=== PATIENT | male | born 1960 | race Caucasian/White ===

== ENCOUNTER 2022-08-11 08:17 | Outpatient (CLI) | payer MEDICARE, SELFPAY ==
--- NOTE | ~2022-08-11 | MR_ITS ---
EXAMINATION: MR cervical spine wo con DATE: 08/11/2022 09:25 INDICATION: Neck pain. TECHNIQUE: Magnetic resonance imaging (MRI) of the cervical spine was performed without intravenous c ontrast. Sequences included sagittal T2-weighted FSE, sagittal T2-weighted FS FSE, sagittal T1-weight ed FSE, axial MERGE, and axial T2-weighted FSE. COMPARISON: None FINDINGS: There is kyphosis of cervical spine. Vertebral body heights and intervertebral disc heights are normal. Osseous central spinal canal is developmentally small in cervical spine. The spinal cord signal intensity is normal. The following disc levels are specifically discussed: C2-C3: The disc does not extend beyond the endplate margin. There is mild left uncovertebral joint os teoarthritis. There is mild bilateral facet joint osteoarthritis. There is mild left neural foraminal stenosis. There is mild central canal stenosis. C3-C4: The disc does not extend beyond the endplate margin. There is mild right uncovertebral joint o steoarthritis. There is mild right and moderate left facet joint osteoarthritis. There is mild bilate ral neural foraminal stenosis. There is mild central canal stenosis. C4-C5: The disc does not extend beyond the endplate margin. There is mild bilateral uncovertebral lela nt osteoarthritis. There is mild bilateral facet joint osteoarthritis. There is mild bilateral neural foraminal stenosis. There is mild central canal stenosis. C5-C6: The disc is bulging. There is mild bilateral uncovertebral joint osteoarthritis. There is mode rate bilateral facet joint osteoarthritis. There is mild bilateral neural foraminal stenosis. There i s mild central canal stenosis. C6-C7: The disc does not extend beyond the endplate margin. There is mild bilateral uncovertebral lela nt osteoarthritis. There is mild bilateral facet joint osteoarthritis. There is mild bilateral neural foraminal stenosis. There is no central canal stenosis. C7-T1: The disc does not extend beyond the endplate margin. There is no uncovertebral joint osteoarth ritis. There is mild right facet joint osteoarthritis. There is no neural foraminal stenosis. There i s no central canal stenosis. IMPRESSION: 1. Mild cervical spondylosis. Reviewed, dictated and finalized at location A. [employer]
== END 2022-08-11 08:18 ==
PROVIDERS: PCP Family Medicine; Visit Provider Orthopaedic Surgery Hand Surgery
DX: M25.511 Pain in right shoulder (principal); M43.02 Spondylolysis, cervical region
CPT/HCPCS: 72141

== ENCOUNTER 2022-08-16 14:18 | Outpatient (CLI) | payer MEDICARE, MEDICAID, SELFPAY ==
--- NOTE | ~2022-08-16 | US_ITS ---
US art doppler w press LE BI INDICATION: Peripheral vascular disease TECHNIQUE: Segmental pressures and plethysmographic and Doppler waveforms of the brachial and lower e xtremity arteries were obtained. COMPARISON: None. FINDINGS: Right and left brachial artery pressures of 171 mm Hg and 184 mm Hg, respectively, are concordant (no rmal difference <= 30 mmHg). The right ankle-brachial index (WADE) is 0.82 (normal >= 0.9-1.0). The right great toe-brachial index (TBI) is 0.3 (normal >= 0.60). The left WADE could not be obtained. The left TBI is 0.27. IMPRESSION: 1. Significantly decreased bilateral toe brachial indices consistent with severe peripheral arterial disease. 2: Mildly decreased right ankle-brachial index. Left ankle brachial index could not be obtained. Reviewed, dictated and finalized at location A. [facility] IMPRESSION: 1. Significantly decreased bilateral toe brachial indices consistent with sever e peripheral arterial disease. 2: Mildly decreased right ankle-brachial index. Left ankle brachial index could not be obtained.
== END 2022-08-16 14:19 | disposition home or self-care (01) ==
PROVIDERS: PCP Family Medicine; Visit Provider Podiatrist Foot & Ankle Surgery
DX: I73.9 Peripheral vascular disease, unspecified (principal)
CPT/HCPCS: 93923

== ENCOUNTER 2022-12-05 11:39 | Observation (INO) | payer MEDICARE, MEDICAID, SELFPAY ==
[2022-12-05] VITALS (20 sets, daily range): BP systolic 136–175; BP diastolic 48–65; PULSE 81–95; RESP 14–24; TEMP 36.9–37.7; O2SAT 94–98; BMI 35.7; BMI 35.6
--- NOTE | ~2022-12-05 | US_ITS ---
EXAMINATION: US arterial duplex LE DATE: 12/06/2022 17:43 INDICATION: Left lower limb pain and decreased pulses TECHNIQUE: Multiple grayscale and Doppler ultrasound images of the left lower limb were obtained. COMPARISON: None FINDINGS: Triphasic waveforms with brisk systolic upstrokes at the left common femoral, superficial femoral, pr ofunda femoral and proximal popliteal arteries. Biphasic waveforms with brisk systolic upstrokes at t he more left distal popliteal artery, proximal to mid posterior tibial, anterior tibial and proximal dorsalis pedis artery. There appears to be a segmental occlusion versus high-grade stenosis at the di stal left posterior tibial artery with no discernible vascular flow on color Doppler and with very sl ow aphasic waveform on M-mode Doppler which appears primarily retrograde and more likely associated w ith flow in the associated vein. Similarly there appears be occlusion of the distal left dorsalis ped is artery with no discernible vascular flow on color or M-mode Doppler. IMPRESSION: 1. Occlusion versus high-grade stenoses at the distal left posterior tibial and dorsalis pedis arteri es with relatively abrupt transition from normal arterial waveforms with brisk systolic upstrokes in the more proximal arteries. Could consider further evaluation with angiography, either conventional o r with CT as clinically indicated. Reviewed, dictated and finalized at location A. IMPRESSION: 1. Occlusion versus high-grade stenoses at the distal left posterior tibial and dorsalis pedis arteries with relatively abrupt transition from normal arterial waveforms with brisk systolic upstrokes in the more proximal arteries. Could c onsider further evaluation with angiography, either conventional or with CT as clinically indicated.
--- NOTE | ~2022-12-05 | XR_ITS ---
XR lumbar spine 2-3V DATE: 12/05/2022 12:45 INDICATION: Fall. Low back pain. TECHNIQUE: AP, lateral, coned lateral lumbosacral views COMPARISON: None FINDINGS: There is mild thoracolumbar levoscoliosis. No fracture or bone destruction or spondylolisthesis. There is mild to moderate degenerative disc dis ease of the lumbar spine. The sacroiliac joints are intact. IMPRESSION: Mild levoscoliosis Moderate degenerative disc disease No lumbar fracture is evident Reviewed, dictated and finalized at location B.
--- NOTE | ~2022-12-05 | XR_ITS ---
XR chest 1V DATE: 12/05/2022 12:45 INDICATION: Confusion TECHNIQUE: AP chest COMPARISON: None FINDINGS: Heart size is likely enlarged although not optimally evaluated on AP projection because of magnification. No pulmonary vascular congestion or pleural effusion. No pulmonary infiltrate or consolidation. No pn eumothorax. Degenerative spurring of the thoracic spine. IMPRESSION: No active pulmonary disease Reviewed, dictated and finalized at location B. IMPRESSION: No active pulmonary disease
--- NOTE | ~2022-12-05 | US_ITS ---
US venous doppler [facility] DATE: 12/06/2022 17:42 INDICATION: Left leg pain TECHNIQUE: Real-time and color flow imaging and Doppler analysis of the veins of the left lower extre mity COMPARISON: None FINDINGS: The left greater saphenous vein is patent. There is spontaneous and phasic flow and normal augmentation and color signal and normal compression of the deep veins of the left lower extremity. IMPRESSION: No evidence of deep venous thrombosis of left lower extremity Reviewed, dictated and finalized at Location A. Reviewed, dictated and finalized at location A.
--- NOTE | ~2022-12-05 | CT_ITS ---
EXAMINATION: CT hip LT wo con DATE: 12/05/2022 14:15 INDICATION: Worsening left hip pain TECHNIQUE: High resolution computed tomography (CT) of the left hip was performed without intravenous contrast. Additional sagittal and coronal reconstructions were performed. Automated exposure control and iterative reconstruction technique were employed. The dose-length product was 700.44 mGy-cm. COMPARISON: Radiograph dated 12/05/2022 FINDINGS: Alignment is normal. No fracture or suspected avascular necrosis. Mild osteoarthritis at the left hip with mild nonuniform joint space narrowing, subarticular cystlike changes along the superolateral ri m of the left acetabulum and small marginal osteophytes about both the acetabulum and femoral head. A dditional mild polyarticular osteoarthritis at the bilateral sacroiliac and lower lumbar facet joints . No left hip joint effusion. Mild diverticulosis along the sigmoid colon without adjacent inflammato ry stranding to suggest diverticulitis. Bladder and prostate are unremarkable. Calcifications along t he penile fascia consistent with pleural-based disease. There are also scattered vascular calcificati ons in the pelvis and proximal left thigh including the bilateral seminal vesicles which is suggestiv e of diabetes. IMPRESSION: 1. Mild left hip osteoarthritis. No acute osseous abnormality. Reviewed, dictated and finalized at location A.
--- NOTE | ~2022-12-05 | CT_ITS ---
CT head without contrast Indication: Altered mental status Technique: Serial scans were obtained through the brain without the administration of contrast. Dose reduction technique was used on this scan by utilizing automated exposure control and iterative recon struction technique. The dose-length product (DLP) was 605.33 mGy-cm. Findings: There is no evidence of intracranial hemorrhage, mass lesion, or acute infarct. The ventri cles and subarachnoid spaces are dilated, consistent with mild atrophy. Low attenuation regions are seen within the periventricular white matter bilaterally, likely representing changes from chronic mi crovascular ischemic disease. There is no evidence of edema, mass effect or midline shift. The visu alized paranasal sinuses and mastoid air cells are clear. Impression: No intracranial hemorrhage, mass, or acute infarct. Atrophy and chronic white matter changes, as above. Reviewed, dictated and finalized at location . Impression: No intracranial hemorrhage, mass, or acute infarct. Atrophy and chronic white matter changes, as above.
--- NOTE | ~2022-12-05 | XR_ITS ---
XR hip LT 2V w AP pelvis DATE: 12/05/2022 12:45 INDICATION: Fall. Left hip pain. TECHNIQUE: AP pelvis. AP and lateral views of left hip. COMPARISON: None FINDINGS: Intramedullary karri of right femur. The pubic symphysis and sacroiliac joints are intact. No pelvic fracture or bone destruction is evide nt. Mild left hip osteoarthritis. No fracture or dislocation, avascular necrosis or bone destruction of t he left hip is detected. Incidentally noted are vas deferens calcifications, usually associated with diabetes. IMPRESSION: No pelvic or left hip fracture Intramedullary karri of right femur Vas deferens calcifications, suggesting diabetes Reviewed, dictated and finalized at location B.
--- NOTE | ~2022-12-05 | US_ITS ---
US renal BI DATE: 12/06/2022 17:42 INDICATION: Renal failure TECHNIQUE: Real-time imaging of the kidneys and urinary bladder COMPARISON: None FINDINGS: The right kidney measures 10.2 cm length, the left kidney 10.5 cm length. Renal parenchyma appears abnormally hyperechoic, suggesting chronic renal disease. No renal mass lesi on or hydronephrosis. The urinary bladder is unremarkable. IMPRESSION: Increased parenchymal echogenicity of the kidneys suggesting chronic renal disease No evidence of obstructive uropathy Reviewed, dictated and finalized at Location A. Reviewed, dictated and finalized at location A. IMPRESSION: Increased parenchymal echogenicity of the kidneys suggesting chroni c renal disease No evidence of obstructive uropathy
--- NOTE | 2022-12-05 12:11 | ECG_ITS ---
Measurements Intervals [place] Rate: 90 P: 52 CO: 179 QRS: 7 QRSD: 90 T: 72 QT: 304 QTc: 373 Interpretive Statements SINUS RHYTHM INCOMPLETE RIGHT BUNDLE BRANCH BLOCK CONSIDER INFERIOR INFARCT, AGE INDETERMINATE BORDERLINE ST-T WAVE ABNORMALITY- HIGH LATERAL LEADS BASELINE ARTIFACT- I, II, III, AVR, AVL, AVF, V1, V6 ABNORMAL ECG NO PREVIOUS ECG AVAILABLE FOR COMPARISON Electronically Signed On 12-05-2022 14:36:55 CDT by Ankush Razo D.O.
--- NOTE | 2022-12-05 12:51 | ED.GENADULT ---
HPI - General Adult General Chief complaint: Extremity Injury, Lower Stated complaint: fall with left hip pain on 11/20 Time Seen by Provider: 12/05/22 11:56 Source: patient, family and RN notes reviewed Mode of arrival: wheelchair History of Present Illness HPI narrative: This is a 62 year old male with history of DM, hypertension, chronic kidney disease, PAD, blindness who presents for evaluation of left hip pain. He states that he fell November 20. His family states that his left leg accidentally fell in between the seats jarring his left hip. He states he has had progressively worsening left hip pain. His pain is worse with movement. He denies bruising or swelling. He takes percocet 10/325 once or twice a day and he last took dose at 730 this morning. His family also reports patient has been dealing with URI symptoms. She also reports some confusion that may be due to pain. Related Data Home Medications Medication Instructions Recorded Confirmed amlodipine 10 mg tablet 10 mg PO DAILY 12/16/20 aspirin 81 mg chewable tablet 81 mg PO DAILY 12/16/20 atorvastatin 40 mg tablet 40 mg PO DAILY 12/16/20 atropine 1 % eye drops 1 drp ophthalmic (eye) DAILY 12/16/20 carvedilol 6.25 mg tablet 6.25 mg PO BID 12/16/20 coenzyme Q10 150 mg capsule (Co 150 mg PO DAILY 12/16/20 Q-10) docusate sodium 100 mg capsule 100 mg PO DAILY 12/16/20 furosemide 20 mg tablet 20 mg PO QAM 12/16/20 glucagon 1 mg/mL solution for 1 mg subcut Q20M 12/16/20 injection (GlucaGen Diagnostic Kit) magnesium oxide 400 mg PO DAILY 12/16/20 prednisolone acetate 1 % eye 1 drp ophthalmic (eye) TID 12/16/20 drops,suspension timolol maleate 0.5 % once daily 1 drp EACH EYE DAILY 12/16/20 eye drops carvedilol 6.25 mg tablet mg 12/05/22 cetirizine 10 mg tablet mg 12/05/22 dapagliflozin 5 mg tablet (Farxiga) mg 12/05/22 diclofenac sodium 1 % topical gel topical 12/05/22 insulin lispro 200 unit/mL (3 mL) subcut 12/05/22 subcutaneous pen (Humalog KwikPen U-200 Insulin) Allergies Allergy/AdvReac Type Severity Reaction Status Date / Time No Known Allergies Allergy Verified 12/05/22 11:43 Review of Systems Constitutional: Constitutional: Reports weakness Eyes: Comments: chronic blindness from diabetes ENT: Reports nasal congestion Cardiovascular: Cardiovascular: Denies syncope, Denies rapid heart rate, Denies irregular heart rhythm, Denies leg edema and Denies dyspnea Respiratory: Respiratory: Denies chest congestion, Denies hemoptysis, Denies excessive phlegm production and Denies dyspnea Gastrointestinal: Gastrointestinal: Denies abdominal pain, Denies hematochezia, Denies diarrhea, Reports nausea and Denies vomiting Genitourinary: Genitourinary: Denies hematuria, Denies dysuria, Denies penile discharge and Denies testicular pain Musculoskeletal: Musculoskeletal: Reports back pain (chronic back pain), Reports arthralgias, Denies joint swelling, Denies loss of height and Denies muscle weakness Neurologic: Denies syncope, Denies focal weakness and Denies weakness PMFSH Past Medical History Medical History (Updated 12/05/22 @ 21:14 by Larissa Payton MD) 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isease Diabetic neuropathy Hypertension PAD (peripheral artery disease) Surgical History Surgical History (Updated 12/05/22 @ 14:05 by Larissa Payton MD) H/O eye surgery H/O repair of rotator cuff Social History Social History (Updated 12/05/22 @ 14:06 by Larissa Payton MD) Smoking status: Never smoker Exam Const: General: no acute distress and alert Nutritional Appearance: obese Orientation/consciousness: patient oriented x3 HENMT: Head: normal to inspection Mouth: Yes Normal oral and palatal mucosa present Throat: posterior oropharynx normal and uvula midline Neck: Neck: normal visual inspection Chest: Chest palpation & inspection: normal inspection of the chest Resp: Effort & Ins
[2022-12-05 12:59] LABS: Glucose Point of Care 86 mg/dl (65-105)
[2022-12-05 13:08] LABS: Basophils Percent Auto 0.3 % (0.2-1.2); Eosinophils Absolute Auto 0.2 K/mm3 (0-0.3); Eosinophils Percent Auto 2.3 % (0-4.4); Hematocrit 39.1 % (42.0-52.0); Hemoglobin 13.2 g/dL (14.0-18.0); Immature Granulocyte Absolute 0.03 K/mm3 (0.00-0.031); Immature Granulocyte Percent A 0.3 % (0-0.5); Lymphocytes Absolute Auto 0.79 K/mm3 (0.9-3.2); Lymphocytes Percent Auto 9.2 % (18.3-44.2); Mean Corpuscular HGB Conc 33.8 g/dl (32-36); Mean Corpuscular Volume 88.9 fl (80-100); Mean Platelet Volume 10.7 fl (7.4-10.4); Monocytes Absolute Auto 1.3 K/mm3 (0.1-0.6); Neutrophils Absolute Auto 6.3 K/mm3 (1.3-6.7); Neutrophils Percent Auto 72.9 % (45.5-73.1); Platelet Count Result 147 k/mm3 (150-375); Red Cell Distribution Width 12.4 % (11.5-14.5); White Blood Count 8.6 K/mm3 (4.5-10.0)
[2022-12-05] MEDS: ONDANSETRON INJ 4 MG/2 ML VIAL IV PUSH (13:11)
[2022-12-05] MEDS: HYDROmorphone HCL INJ (*CRX) 1 MG/ML SYR 0.5 MG IV PUSH (13:11)
[2022-12-05 13:18] LABS: Alanine Aminotransferase 35 U/L (6-50); Albumin Level 4.2 g/dL (3.5-5.1); Alkaline Phosphatase 84 U/L (38-126); Anion Gap 8 mmol/L (8-16); Aspartate Amino Transferase 33 U/L (17-59); Bilirubin,Total 0.4 mg/dL (0.2-1.3); Blood Urea Nitrogen 48 mg/dL (9-20); Calcium 8.9 mg/dL (8.4-10.2); Carbon Dioxide 25 mmol/L (22-30); Chloride 105 mmol/L (98-107); Estimated CRCL calculation 31 ml/min; Estimated Glomerular Filt Rate 26; Glucose 89 mg/dL (65-110); Potassium 4.7 mmol/L (3.4-5.0); Sodium 138 mmol/L (137-145)
[2022-12-05 13:20] LABS: Partial Thromboplastin Time 27.9 SECONDS (22.3-36.8); Prothrombin Time 12.7 Seconds (11.1-14.7)
[2022-12-05 14:10] LABS: Influenza A QL RT-PCR Negative (Negative); Influenza B QL RT-PCR Negative (Negative); SARS-CoV-2 RNA PCR Positive
[2022-12-05 14:52] LABS: Glucose Point of Care 53 mg/dl (65-105)
--- NOTE | 2022-12-05 15:00 | PC.NURSE ---
FOOD TRAY ORDERED PER DR WALKER REQUEST D/T LOW BLOOD SUGAR
[2022-12-05 15:20] LABS: Appearance Urine Clear (Clear); Bacteria Urine None Seen /hpf; Bilirubin Urine Negative (Negative); Blood Urine Negative (Negative); Color Urine Yellow (Yellow); Glucose Urine UA Negative (Negative); Hyaline Casts Urine Present /lpf; Ketones Urine Negative (Negative); Leukocyte Esterase Ur Negative LEU/UL (Negative); Need Manual Microscopic Reviewed; Nitrate Urine Negative (Negative); Non Pathogenic Casts >20; Protein Urine 3+ mg/dL (Negative); RBC Urine 0-2 /hpf (0-2); Specific Grav Ur 1.017 (1.001-1.035); Squamous Epithelial Cell Urine None seen /hpf (Few); Urobilinogen Urine 0.2 mg/dL (<2.0); WBC Urine 0-5 /hpf
[2022-12-05 15:37] LABS: Add Urine Microscopic? YES
[2022-12-05 16:18] LABS: Glucose Point of Care 95 mg/dl (65-105)
[2022-12-05 18:00] LABS: Glucose Point of Care 140 mg/dl (65-105)
--- NOTE | 2022-12-05 19:00 | PM.IMHP ---
H&P: HPI History of Present Illness Date/Time: 12/05/22 19:00 Chief Complaint: Weakness, left hip and leg pain. Narrative: This is a 62-year-old male with type 1 diabetes mellitus diagnosed at the age of 4 complicated by diabetic retinopathy which has left him legally blind, peripheral neuropathy in the upper and lower extremities, diabetic nephropathy, hypertension, peripheral arterial disease, and chronic pain syndrome who presented to the emergency department from home for evaluation of weakness and left hip and leg pain. Patient provides the following history. His Viv provides additional information, with the patient's permission. A couple of weeks ago there at the movie theater and he got his foot caught up in the chairs which caused him to fall. He has not really had any issues up until the last couple of days when he developed severe pain in the left hip radiating down the left side of the leg. He was not evaluated after that fall and did not notice any bruising or swelling of the area. He has chronic pain and takes Percocet at home which has not helped with the pain. The pain is worse with movement and better with rest. He has not been getting up as much due to the pain and the last several days he has also had a headache. encouraged him to come in today for evaluation. Lumbar and hip and left pelvis x-ray showed no acute findings. Due to the severity of his pain a hip CT was ordered and that showed no acute osseous abnormality and only mild left hip osteoarthritis. Incidentally he did test positive for COVID and given his weakness and comorbidities he is being admitted overnight for observation. He denies fever, chills, sweats, sore throat, chest pain pleuritic pain, shortness a breath, nausea, vomiting, diarrhea, and dysuria. He also denies sick contacts. Review of Systems Review of Systems: Twelve systems were reviewed. He is legally blind. His manages his diabetes. He has had some lows today. Appetite has been okay. No history of venous thromboembolism. except as documented, all other systems were reviewed and are negative. 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 History of repair of right rotator cuff History of vascular surgery Right lower extremity stent. Family History Family History (Updated 12/06/22 @ 00:21 by Kiera Ríos PA-C) Other Diabetes mellitus Hypertension Social History Social History (Updated 12/06/22 @ 00:22 by Kiera Ríos PA-C) Social History: Surrogate medical decision maker: Viv Wallace, spouse. Code status: Full code. Smoking status: Never smoker Alcohol intake: never Substance use: never Lack of Transportation: No Lack of Food: Never True Current Housing: I Have Housing Concerned About Future Housing: No Difficulty Paying Gas/Electric Bills: No Difficulty Paying for Meds: No Currently Unemployed: No Education: High School Diploma/GED Difficulty w/ Childcare or Family Care: No Additional living arrangements comments: Lives with spouse in [place]. Additional occupation/education comments: Retired/disabled. Spiritual care concerns: No Meds Home Medications and Allergies Home Medications Medication Instructions Recorded Confirmed Type amlodipine 10 mg tablet 10 mg PO DAILY 12/16/20 12/05/22 History aspirin 81 mg chewable tablet 81 mg PO DAILY 12/16/20 12/05/22 History atorvastatin 40 mg tablet 40 mg PO DAILY 12/16/20 12/05/22 History coenzyme Q10
[2022-12-05 23:23] LABS: Glucose Point of Care 154 mg/dl (65-105)
[2022-12-06] MEDS: oxyCODONE/ACETAMINOPHEN (*CRX) 10-325 MG TABLET 1 TAB PO ×2 (05:49→18:29)
[2022-12-06] MEDS: DICLOFENAC SODIUM 1% 100 GM GEL (*BKC) 1 APPLIC TOPICAL (05:53)
[2022-12-06 05:56] LABS: Hematocrit 37.5 % (42.0-52.0); Hemoglobin 12.2 g/dL (14.0-18.0); Mean Corpuscular HGB Conc 32.5 g/dl (32-36); Mean Corpuscular Hemoglobin 30.8 pg (26-34); Mean Corpuscular Volume 94.7 fl (80-100); Mean Platelet Volume 10.7 fl (7.4-10.4); Platelet Count Result 122 k/mm3 (150-375); Red Blood Count 3.96 M/mm3 (4.6-6.20); Red Cell Distribution Width 12.8 % (11.5-14.5); White Blood Count 6.2 K/mm3 (4.5-10.0)
[2022-12-06 06:08] LABS: Anion Gap 7 mmol/L (8-16); Blood Urea Nitrogen 53 mg/dL (9-20); Calcium 8.4 mg/dL (8.4-10.2); Carbon Dioxide 27 mmol/L (22-30); Chloride 106 mmol/L (98-107); Estimated CRCL calculation 26 ml/min; Estimated Glomerular Filt Rate 21; Glucose 100 mg/dL (65-110); Magnesium 2.6 mg/dL (1.6-2.3); Potassium 4.8 mmol/L (3.4-5.0); Sodium 140 mmol/L (137-145)
[2022-12-06 07:32] VITALS: BP 130/48; PULSE 73; RESP 16; TEMP 36.9; O2SAT 94
[2022-12-06] MEDS: OMEGA 3 POLYUNSAT FATTY ACIDS 1 GM CAP 2 GM PO ×2 (08:40→16:17)
[2022-12-06] MEDS: FLUTICASONE PROPIONATE 0.05% NA SPR 16 GM BTL (*BKC) 2 SPRAY NASAL (08:40)
[2022-12-06] MEDS: amLODIPine BESYLATE 5 MG TABLET 10 MG PO (08:41)
[2022-12-06] MEDS: ASPIRIN 81 MG CHEWABLE TABLET PO (08:41)
[2022-12-06 08:42] VITALS: PULSE 76
[2022-12-06] MEDS: DOCUSATE SODIUM 100 MG CAPSULE PO ×2 (08:42→16:18)
[2022-12-06] MEDS: carvediloL 6.25 MG TABLET PO ×2 (08:42→20:30)
[2022-12-06] MEDS: ATORVASTATIN 40 MG TABLET PO (08:42)
[2022-12-06] MEDS: PANTOPRAZOLE 40 MG TABLET PO (08:43)
[2022-12-06] MEDS: DORZOLAMIDE HCL 2% OPHTH DROPS 1 DROP RIGHT EYE ×3 (08:43→16:27)
[2022-12-06] MEDS: LORATADINE 10 MG TABLET PO (08:43)
[2022-12-06] MEDS: FUROSEMIDE 40 MG TABLET PO (08:43)
[2022-12-06] MEDS: TIMOLOL MALEATE 0.5% OP SOLN 5 ML BOTTLE 1 DROP EACH EYE (08:44)
[2022-12-06] MEDS: prednisoLONE ACETATE 1% OPHTH 5 ML 1 DROP LEFT EYE ×2 (08:44→16:28)
[2022-12-06] MEDS: MAGNESIUM OXIDE 400 MG TABLET PO (08:44)
[2022-12-06] MEDS: MULTIVITAMINS /C LUTEIN (CENTRUM SILVER) TABLET *BKC 1 TAB PO (08:44)
[2022-12-06 08:45] LABS: Hemoglobin A1C 5.7 % (<5.7)
[2022-12-06 08:46] LABS: Glucose Point of Care 112 mg/dl (65-105)
--- NOTE | 2022-12-06 11:36 | PM.IMPN ---
Progress Note: A&P Assessment and Plan (1) COVID-19: Code(s): U07.1 - COVID-19 Status: Acute (2) Left hip pain: Code(s): M25.552 - Pain in left hip Status: Acute (3) Type 1 diabetes mellitus: Code(s): E10.9 - Type 1 diabetes mellitus without complications Status: Acute (4) Chronic kidney disease (CKD): Code(s): N18.9 - Chronic kidney disease, unspecified Status: Acute (5) Weakness: Code(s): R53.1 - Weakness Status: Acute Plan The patient presented to the emergency department for evaluation of weakness and left hip pain Left hip pain x-rays CT negative for fracture. Suspect trochanteric bursitis/sprain of sartorius muscle PT OT to see ultrasound ordered to rule out DVT COVID positive incidental finding no symptoms per se. Not requiring oxygen. Remdesivir contraindicated due to chronic renal failure. Decadron can cause hyperglycemia and hence will be avoided. SABRA on CKD stage 3: Creatinine bumped up to 3. Was 2.5 per yesterday. His baseline around low 2s per family. Will give gentle fluid check renal ultrasound if worsening may need renal consultation. Check CK level Type 1 diabetes on insulin pump which will be continued as per protocol Hypertension Hyperlipidemia GERD Chronic pain syndrome TAVR artery disease Diabetic nephropathy Peripheral neuropathy Diabetic retinopathy Legally blind DVT prophylaxis Subjective Date/time seen: 12/06/22 11:36 Interval history: feels okay. no reps symptoms. on insulin pump. leg left hurts when moves start from left hip area to left knee to schofield. started and worsening since past few days. injury early in november wasn't that bad at that time. xray and hip ct negative for fracture. Review of Systems Review of Systems: All systems reviewed & are unremarkable except as noted in HPI and below Exam Narrative: General: Chronically ill, nontoxic-appearing malein not acute distress HEENT: Right pupil is reactive. Left eye cornea is clouded over. Sclera anicteric. Tacky mucous membranes. Neck: Supple. Respiratory: Lungs are clear to auscultation bilaterally. Cardiovascular: Regular rate and rhythm with S1-S2. Gastrointestinal: Abdomen is soft and obese with positive bowel sounds. Slightly tender to palpation the lower abdomen. No guarding or rebound tenderness. Skin: Warm and dry. Extremities: No cyanosis, clubbing, or edema. Radial and right pedal pulses palpable. Left pedal pulse diminished, dorsalis pedis pulse is heard with the Doppler.. Extremities are warm and perfused. No palpable knots or cords. Musculoskeletal: Tender left hip; no restricted range of motion Neurological: Alert and oriented. Cranial nerves 2-12 are grossly intact. No gross focal deficits to casual conversation. Psychiatric: Cooperative. Appropriate mood and affect. Objective Data Vital Signs Vital Signs: Vital Signs - 24 hr 12/05/22 11:51 12/05/22 12:02 12/05/22 12:16 Temperature 99.8 F H Pulse Rate 95 89 84 Respiratory Rate 20 16 18 Blood Pressure 175/58 H 151/57 H 136/54 L Pulse Oximetry 98 97 95 Oxygen Delivery Room Air 12/05/22 12:47 12/05/22 13:15 12/05/22 14:00 Temperature Pulse Rate 87 83 88 Respiratory Rate 14 22 H 24 H Blood Pressure Pulse Oximetry 96 96 94 Oxygen Delivery 12/05/22 14:45 12/05/22 15:55 12/05/22 16:17 Temperature Pulse Rate 89 89 88 Respiratory Rate 16 17 19 Blood Pressure 161/62 H 155/55 H Pulse Oximetry 95 97 Oxygen Delivery 12/05/22 16:34 12/05/22 16:46 12/05/22 17:24 Temperature Pulse Rate 92 93 94 Respiratory Rate 18 18 17 Blood Pressure 172/56 H 166/56 H 161/60 H Pulse Oximetry 96 96 96 Oxygen Delivery 12/05/22 17:31 12/05/22 17:46 12/05/22 18:01 Temperature Pulse Rate 93 95 94 Respiratory Rate 17 16 16 Blood Pressure 142/60 H 152/65 H 159/58 H Pulse Oximetry 97 98 97 Oxygen Delivery 12/05/22 18:16 12/05/22 18:31 12/05/22 18:
[2022-12-06] MEDS: SODIUM CHLORIDE 0.9% IV 1,000 ML 50 ML IV CONT (12:12)
[2022-12-06 12:37] LABS: Glucose Point of Care 144 mg/dl (65-105)
[2022-12-06 13:59] LABS: Influenza A QL RT-PCR Negative (Negative); Influenza B QL RT-PCR Negative (Negative); RSV RNA, RT-PCR Negative (Negative); SARS-CoV-2 RNA PCR Positive
[2022-12-06 14:30] VITALS: BP 158/63; PULSE 85; RESP 18; TEMP 39.1; O2SAT 96
[2022-12-06] MEDS: ACETAMINOPHEN 325 MG TABLET 650 MG PO (15:05)
[2022-12-06 17:21] LABS: Glucose Point of Care 106 mg/dl (65-105)
[2022-12-06 18:12] LABS: Creatine Kinase 398 U/L (55-170)
[2022-12-06] MEDS: CYCLOBENZAPRINE HCL 5 MG TABLET PO (18:29)
[2022-12-06 19:36] VITALS: BP 133/44; PULSE 71; RESP 16; TEMP 37.1; O2SAT 96
[2022-12-06 20:00] VITALS: PULSE 71; RESP 16; O2SAT 96
[2022-12-06 20:00] LABS: Glucose Point of Care 221 mg/dl (65-105)
[2022-12-07] MEDS: oxyCODONE/ACETAMINOPHEN (*CRX) 10-325 MG TABLET 1 TAB PO ×2 (01:24→20:44)
[2022-12-07 07:08] LABS: Basophils Percent Auto 0.3 % (0.2-1.2); Eosinophils Percent Auto 0.5 % (0-4.4); Hematocrit 39.8 % (42.0-52.0); Hemoglobin 12.8 g/dL (14.0-18.0); Immature Granulocyte Absolute 0.02 K/mm3 (0.00-0.031); Immature Granulocyte Percent A 0.3 % (0-0.5); Immature Platelet Fraction Pct 3.6 % (0.9-11.2); Lymphocytes Absolute Auto 1.04 K/mm3 (0.9-3.2); Lymphocytes Percent Auto 16.7 % (18.3-44.2); Mean Corpuscular HGB Conc 32.2 g/dl (32-36); Mean Corpuscular Hemoglobin 30.5 pg (26-34); Mean Platelet Volume 11.2 fl (7.4-10.4); Monocytes Percent Auto 16.4 % (2.6-8.5); Neutrophils Absolute Auto 4.1 K/mm3 (1.3-6.7); Neutrophils Percent Auto 65.8 % (45.5-73.1); Platelet Count Result 116 k/mm3 (150-375); Red Blood Count 4.19 M/mm3 (4.6-6.20); Red Cell Distribution Width 12.8 % (11.5-14.5); White Blood Count 6.2 K/mm3 (4.5-10.0)
[2022-12-07 07:14] LABS: Alanine Aminotransferase 49 U/L (6-50); Albumin Level 3.9 g/dL (3.5-5.1); Alkaline Phosphatase 74 U/L (38-126); Anion Gap 8 mmol/L (8-16); Aspartate Amino Transferase 60 U/L (17-59); Bilirubin,Total 0.4 mg/dL (0.2-1.3); Blood Urea Nitrogen 59 mg/dL (9-20); Calcium 8.2 mg/dL (8.4-10.2); Carbon Dioxide 24 mmol/L (22-30); Chloride 104 mmol/L (98-107); Estimated CRCL calculation 23 ml/min; Estimated Glomerular Filt Rate 19; Glucose 115 mg/dL (65-110); Magnesium 2.5 mg/dL (1.6-2.3); Potassium 4.7 mmol/L (3.4-5.0); Sodium 136 mmol/L (137-145)
[2022-12-07 07:27] VITALS: BP 130/59; PULSE 77; RESP 16; TEMP 36.7; O2SAT 98
[2022-12-07] MEDS: FLUTICASONE PROPIONATE 0.05% NA SPR 16 GM BTL (*BKC) 2 SPRAY NASAL (08:20)
[2022-12-07] MEDS: DOCUSATE SODIUM 100 MG CAPSULE PO ×2 (08:20→17:26)
[2022-12-07] MEDS: LORATADINE 10 MG TABLET PO (08:20)
[2022-12-07] MEDS: OMEGA 3 POLYUNSAT FATTY ACIDS 1 GM CAP 2 GM PO ×2 (08:20→17:26)
[2022-12-07] MEDS: ASPIRIN 81 MG CHEWABLE TABLET PO (08:23)
[2022-12-07] MEDS: amLODIPine BESYLATE 5 MG TABLET 10 MG PO (08:23)
[2022-12-07] MEDS: MAGNESIUM OXIDE 400 MG TABLET PO (08:23)
[2022-12-07 08:24] VITALS: PULSE 75
[2022-12-07] MEDS: MULTIVITAMINS /C LUTEIN (CENTRUM SILVER) TABLET *BKC 1 TAB PO (08:24)
[2022-12-07] MEDS: carvediloL 6.25 MG TABLET PO ×2 (08:24→20:45)
[2022-12-07] MEDS: FUROSEMIDE 40 MG TABLET PO (08:24)
[2022-12-07] MEDS: ATORVASTATIN 40 MG TABLET PO (08:24)
[2022-12-07] MEDS: PANTOPRAZOLE 40 MG TABLET PO (08:24)
[2022-12-07] MEDS: TIMOLOL MALEATE 0.5% OP SOLN 5 ML BOTTLE 1 DROP EACH EYE (08:26)
[2022-12-07] MEDS: DORZOLAMIDE HCL 2% OPHTH DROPS 1 DROP RIGHT EYE ×3 (08:26→17:25)
[2022-12-07] MEDS: prednisoLONE ACETATE 1% OPHTH 5 ML 1 DROP LEFT EYE ×2 (08:26→17:25)
[2022-12-07] MEDS: CYCLOBENZAPRINE HCL 5 MG TABLET PO ×2 (08:31→20:45)
[2022-12-07] MEDS: ACETAMINOPHEN 325 MG TABLET 650 MG PO (08:31)
[2022-12-07 09:19] LABS: Glucose Point of Care 110 mg/dl (65-105)
[2022-12-07 12:02] LABS: Glucose Point of Care 147 mg/dl (65-105)
[2022-12-07 14:00] VITALS: BP 133/43; PULSE 69; RESP 18; TEMP 37.2; O2SAT 98
--- NOTE | 2022-12-07 14:12 | PM.IMPN ---
Progress Note: A&P Assessment and Plan (1) COVID-19: Code(s): U07.1 - COVID-19 Status: Acute (2) Left hip pain: Code(s): M25.552 - Pain in left hip Status: Acute (3) Type 1 diabetes mellitus: Code(s): E10.9 - Type 1 diabetes mellitus without complications Status: Acute (4) Chronic kidney disease (CKD): Code(s): N18.9 - Chronic kidney disease, unspecified Status: Acute (5) Weakness: Code(s): R53.1 - Weakness Status: Acute Plan The patient presented to the emergency department for evaluation of weakness and left hip pain Left hip pain x-rays CT negative for fracture. Suspect trochanteric bursitis/sprain of sartorius muscle PT OT to see ultrasound negative for DVT. Arterial duplex on left leg suggestive of occlusion versus high-grade stenosis of the distal left posterior tibial and dorsalis pedis artery with relatively abrupt transition from normal arterial waveform with brisk systolic obstruction the more proximal arteries. Further evaluation with angiography as indicated currently with worsening renal failure. No signs of acute ischemia. Continue antiplatelet aspirin and statin as ordered # cOVID positive incidental finding no symptoms per se. Not requiring oxygen. Remdesivir contraindicated due to chronic renal failure. Decadron can cause hyperglycemia and hence will be avoided. Repeat is still positive # Heraclio on CKD stage 3: Creatinine bumped up to 3. Was 2.5 per yesterday. His baseline around low 2s per family. Will give gentle fluid check renal ultrasound if worsening may need renal consultation. CK level elevated at 395. Continue IV hydration. Renal consultation today. Creatinine continues worsened to 3.3. Urine output adequate. Will hold Lasix. Renal ultrasound with no evidence of obstructive uropathy. Increased parenchymal echogenicity of the kidneys suggesting chronic renal disease. # type 1 diabetes on insulin pump which will be continued as per protocol # hypertension # hyperlipidemia # GERD # chronic pain syndrome # peripheral artery disease # diabetic nephropathy # peripheral neuropathy # diabetic retinopathy # legally blind # dVT prophylaxis heparin subQ # code status full code Subjective Date/time seen: 12/07/22 14:12 Interval history: No overnight events. Leg pain was better with Flexeril yesterday. Going to work with therapy remains on insulin. Arterial duplex the patient. Called Dr. Aldridge office today to discuss previous findings Dr. Aldridge not available discussed with nurse. Review of Systems Review of Systems: All systems reviewed & are unremarkable except as noted in HPI and below Exam Narrative: General: Chronically ill, nontoxic-appearing malein not acute distress HEENT: Right pupil is reactive. Left eye cornea is clouded over. Sclera anicteric. Tacky mucous membranes. Neck: Supple. Respiratory: Lungs are clear to auscultation bilaterally. Cardiovascular: Regular rate and rhythm with S1-S2. Gastrointestinal: Abdomen is soft and obese with positive bowel sounds. Slightly tender to palpation the lower abdomen. No guarding or rebound tenderness. Skin: Warm and dry. Extremities: No cyanosis, clubbing, or edema. Radial and right pedal pulses palpable. Left pedal pulse diminished, dorsalis pedis pulse diminished Musculoskeletal: Tender left hip; no restricted range of motion Neurological: Alert and oriented. Cranial nerves 2-12 are grossly intact. No gross focal deficits to casual conversation. Psychiatric: Cooperative. Appropriate mood and affect. Objective Data Vital Signs Vital Signs: Vital Signs - 24 hr 12/06/22 14:30 12/06/22 19:36 12/06/22 20:00 Temperature 102.3 F H 98.8 F Pulse Rate 85 71 71 Respiratory Rate 18 16 16 Blood Pressure 158/63 H 133/44 L Pulse Oximetry 96 96 96 Oxygen Delivery Room Air 12/07/22 07:27 12/07/22 08:24 Temperature 98.0 F Pulse Rate 77 75 Respiratory Rate 16 B
--- NOTE | 2022-12-07 14:19 | PM.CNNEP ---
Assessment and Plan Assessment and plan (1) SABRA (acute kidney injury): Code(s): N17.9 - Acute kidney failure, unspecified Status: Acute Assessment and Plan: etiology not clear suspect possibly related to COVID-19 infection versus random fluctuations evaluation to date noted: renal ultrasound c/w CKD with no acute abnormalities CPK mildly elevated but not enough to alter kidney function UA only notable for protein urine electrolytes and eosinophils pending follow trend of repeat labs and UOP (2) Stage 3b chronic kidney disease: Code(s): N18.32 - Chronic kidney disease, stage 3b Status: Chronic Assessment and Plan: baseline creatinine seems to run ~ 2.0 - 2.5mg/dl follow with Dr. Darin Bustamante for management of his CKD felt to be secondary to DM, vascular disease, and HTN (3) COVID-19: Code(s): U07.1 - COVID-19 Status: Acute Assessment and Plan: as noted by testing in ER possible etiology of weakness no hypoxia or shortness of breath so holding steroids and not a candidate for remdesivir due to CKD follow respiratory status (4) Left hip pain: Code(s): M25.552 - Pain in left hip Status: Acute Assessment and Plan: presuambly due to DJD/osteoarthrtis imaging studies without fracture continue supportive therapy (5) Weakness: Code(s): R53.1 - Weakness Status: Acute Assessment and Plan: possibly due to COVID-19 infection PT/OT as tolerated (6) Type 1 diabetes mellitus: Code(s): E10.9 - Type 1 diabetes mellitus without complications Status: Acute Assessment and Plan: follow accuchecks glycemic control as per hospitalists Long extensive discussion (greater than 20 minutes) with both the patient as well as at bedside with regard to his fluctuating creatinine/kidney function. The patient's is well aware of the extremes that the patient's kidney function has fluctuated in the past as it has been lower than 2.0 mg/dL in the past and sometimes higher than 2.5 mg/dL as well. I will continue to follow the patient with you while remains hospitalized to make further recommendations during his course. Thank you for allowing me to participate in the care this patient. History of Present Illness Reason for Consult Consult date: 12/07/22 Reason for consult: acute renal failure (on chronic kidney disease) Chief Complaint Chief complaint: covid, weakness, left hip pain History of Present Illness Narrative: The patient is a 62-year-old male with a past medical history as outlined below who presented to [facility] Emergency room for further evaluation of generalized weakness and left hip/leg pain. A few weeks ago, the patient apparently got his foot Ant in 1 of the chairs which caused him to fall. He did not appear to have any type of immediate / acute injury from the fall and had been doing fairly well up until a few days ago prior to admission when he developed severe pain in his left hip. The left hip pain radiated down the side of his left leg as well. He has chronic pain issues in general and usually takes his prescribed Percocet for this issue But even with the use of Percocet for this pain, it is not seem to have helped. The pain seems to be worse with movement and better with rest but his ability to ambulate has been diminished due to the severity of the pain. Due to the persistence of the pain as well as the fact that seemed to be progressively getting worse, his urgent come to the emergency room for further assessment. Workup and evaluation emergency room demonstrated the patient to be hemodynamically stable and in mild distress secondary to the a for mentioned pain. Routine blood test demonstrated labs consistent with his known history of chronic kidney disease with no critical electrolyte abnormalities. Subsequent imaging studies included a lumba
[2022-12-07 17:26] LABS: Glucose Point of Care 142 mg/dl (65-105)
[2022-12-07 20:00] VITALS: PULSE 69; RESP 18; O2SAT 98
[2022-12-07 20:35] LABS: Glucose Point of Care 121 mg/dl (65-105)
[2022-12-07] MEDS: HEPARIN SODIUM 5,000 UNITS/ML VIAL 5000 UNITS SUB-Q (20:44)
[2022-12-07 22:00] VITALS: BP 127/49; PULSE 73; RESP 16; TEMP 36.7; O2SAT 94
[2022-12-08 01:14] VITALS: TEMP 36.7
[2022-12-08 05:41] LABS: Basophils Percent Auto 0.2 % (0.2-1.2); Eosinophils Absolute Auto 0.1 K/mm3 (0-0.3); Eosinophils Percent Auto 1.2 % (0-4.4); Hematocrit 37.2 % (42.0-52.0); Hemoglobin 12.3 g/dL (14.0-18.0); Immature Granulocyte Absolute 0.01 K/mm3 (0.00-0.031); Immature Granulocyte Percent A 0.2 % (0-0.5); Immature Platelet Fraction Pct 3.9 % (0.9-11.2); Lymphocytes Absolute Auto 1.25 K/mm3 (0.9-3.2); Lymphocytes Percent Auto 31.2 % (18.3-44.2); Mean Corpuscular HGB Conc 33.1 g/dl (32-36); Mean Corpuscular Hemoglobin 30.7 pg (26-34); Mean Corpuscular Volume 92.8 fl (80-100); Mean Platelet Volume 11.6 fl (7.4-10.4); Monocytes Absolute Auto 0.6 K/mm3 (0.1-0.6); Neutrophils Absolute Auto 2.1 K/mm3 (1.3-6.7); Neutrophils Percent Auto 51.2 % (45.5-73.1); Platelet Count Result 99 k/mm3 (150-375); Red Blood Count 4.01 M/mm3 (4.6-6.20); Red Cell Distribution Width 12.4 % (11.5-14.5)
[2022-12-08 05:53] LABS: Alanine Aminotransferase 48 U/L (6-50); Albumin Level 3.4 g/dL (3.5-5.1); Alkaline Phosphatase 71 U/L (38-126); Anion Gap 7 mmol/L (8-16); Aspartate Amino Transferase 60 U/L (17-59); Bilirubin,Total 0.3 mg/dL (0.2-1.3); Blood Urea Nitrogen 59 mg/dL (9-20); Calcium 7.8 mg/dL (8.4-10.2); Carbon Dioxide 23 mmol/L (22-30); Chloride 106 mmol/L (98-107); Creatine Kinase 583 U/L (55-170); Estimated CRCL calculation 24 ml/min; Estimated Glomerular Filt Rate 20; Glucose 92 mg/dL (65-110); Potassium 4.6 mmol/L (3.4-5.0); Sodium 136 mmol/L (137-145)
[2022-12-08 05:54] VITALS: BP 167/60; PULSE 79; RESP 20; TEMP 36.6; O2SAT 96
[2022-12-08] MEDS: HEPARIN SODIUM 5,000 UNITS/ML VIAL 5000 UNITS SUB-Q ×2 (06:05→13:17)
[2022-12-08] MEDS: SODIUM CHLORIDE 0.9% IV 1,000 ML 50 ML IV CONT (06:06)
[2022-12-08 08:52] LABS: Glucose Point of Care 123 mg/dl (65-105)
[2022-12-08] MEDS: FLUTICASONE PROPIONATE 0.05% NA SPR 16 GM BTL (*BKC) 2 SPRAY NASAL (10:23)
[2022-12-08 10:24] VITALS: PULSE 84
[2022-12-08] MEDS: ASPIRIN 81 MG CHEWABLE TABLET PO (10:24)
[2022-12-08] MEDS: OMEGA 3 POLYUNSAT FATTY ACIDS 1 GM CAP 2 GM PO (10:24)
[2022-12-08] MEDS: carvediloL 6.25 MG TABLET PO (10:24)
[2022-12-08] MEDS: LORATADINE 10 MG TABLET PO (10:24)
[2022-12-08] MEDS: ATORVASTATIN 40 MG TABLET PO (10:25)
[2022-12-08] MEDS: amLODIPine BESYLATE 5 MG TABLET 10 MG PO (10:25)
[2022-12-08] MEDS: MULTIVITAMINS /C LUTEIN (CENTRUM SILVER) TABLET *BKC 1 TAB PO (10:25)
[2022-12-08] MEDS: DORZOLAMIDE HCL 2% OPHTH DROPS 1 DROP RIGHT EYE ×2 (10:26→13:18)
[2022-12-08] MEDS: MAGNESIUM OXIDE 400 MG TABLET PO (10:26)
[2022-12-08] MEDS: TIMOLOL MALEATE 0.5% OP SOLN 5 ML BOTTLE 1 DROP EACH EYE (10:26)
[2022-12-08] MEDS: PANTOPRAZOLE 40 MG TABLET PO (10:26)
[2022-12-08] MEDS: prednisoLONE ACETATE 1% OPHTH 5 ML 1 DROP LEFT EYE (10:27)
[2022-12-08] MEDS: DOCUSATE SODIUM 100 MG CAPSULE PO (10:30)
[2022-12-08 10:48] VITALS: PULSE 84; RESP 20; O2SAT 96
[2022-12-08] MEDS: CYCLOBENZAPRINE HCL 5 MG TABLET PO (12:09)
[2022-12-08] MEDS: oxyCODONE/ACETAMINOPHEN (*CRX) 10-325 MG TABLET 1 TAB PO (12:09)
[2022-12-08 12:13] LABS: Glucose Point of Care 163 mg/dl (65-105)
--- NOTE | 2022-12-08 13:57 | PM.DS ---
DS: Admitting Diagnosis Discharge Date 12/08/2022 Admitting Diagnosis left hip pain DS: Discharge Diagnosis Discharge Diagnosis (1) COVID-19: Code(s): U07.1 - COVID-19 Status: Acute (2) Left hip pain: Code(s): M25.552 - Pain in left hip Status: Acute (3) Type 1 diabetes mellitus: Code(s): E10.9 - Type 1 diabetes mellitus without complications Status: Acute (4) Chronic kidney disease (CKD): Code(s): N18.9 - Chronic kidney disease, unspecified Status: Acute (5) Weakness: Code(s): R53.1 - Weakness Status: Acute DS: Summary Hospital Course Hospital Course: The patient presented to the emergency department for evaluation of weakness and left hip pain # Left hip pain x-rays CT negative for fracture.? Suspect trochanteric bursitis/sprain of sartorius muscle PT OT to see. On muscle relaxer. ultrasound negative for DVT.? Arterial duplex on left leg suggestive of occlusion versus high-grade stenosis of the distal left posterior tibial and dorsalis pedis artery with relatively abrupt transition from normal arterial waveform with brisk systolic obstruction the more proximal arteries.? Further evaluation with angiography as indicated currently with worsening renal failure.? No signs of acute ischemia.? Continue antiplatelet aspirin and statin as ordered .History did not appear as he is having intermittent claudication. Despite his abnormal arterial duplex with severe peripheral arterial disease. This was reviewed with previous arterial duplex done back in October 04, [address] Aldridge. These has similar changes as is revealed this admission. He will continue to follow-up with Dr. Aldridge with regard to management of this condition. Arterial duplex from [id number] obtained from Dr. Aldridge office: Right leg:? Common femoral mild plaque, biphasic with normal velocity profundus femoral is patent proximally femoral mild plaque biphasic with normal velocity popliteal mild plaque biphasic with normal velocity posterior tibial occlusive plaque distal anterior tibial moderate block distal peroneal mild plaque distal Left leg:? Common femoral mild plaque bite 2 triphasic with normal velocity.? Profundus femoral is patent proximally.? Femoral mild plaque biphasic with elevated PSV 213 centimeter/second popliteal mild plaque biphasic with normal velocity posterior tibial occlusive plaque distal.? Anterior tibial moderate plaque distal peroneal mild plaque distal Conclusion right mild less than 50% stenosis of the common femoral femoral pop oxygen all femoral mid distal occlusion at the posterior tibial Left moderate 50-75% stenosis of the mid femoral mid distal.? Occlusion at the posterior tibial. # cOVID positive incidental finding no symptoms per se.? Not requiring oxygen.? Remdesivir contraindicated due to chronic renal failure.? Decadron can cause hyperglycemia and hence will be avoided.? Repeat is still positive # Heraclio on CKD stage 3:? Creatinine bumped up to 3.? Was 2.5 On admission.? His baseline around low 2s per family.? started on gentle fluid. Renal ultrasound with no evidence of obstructive uropathy. Increased parenchymal echogenicity of the kidneys suggesting chronic renal disease..? CK level elevated at 395 Suggesting mild muscle injury.? creatinine continue to worsen to 3.3. Renal consultation was obtained. With IV fluid holding Lasix creatinine improved. 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
[2022-12-08 14:16] LABS: Creatinine Urine 60.5 mg/dL; Urea Random Urine 473 MG/DL
[2022-12-08 14:27] LABS: Sodium Urine Random 39 meq/L
--- NOTE | 2022-12-08 14:29 | PM.PNNEP ---
Subjective Date/time seen: 12/08/22 12:29 Objective Data Vital Signs Vital Signs: Vital Signs Temp Pulse Resp BP Pulse Ox O2 Del Method 12/08/22 10:48 84 20 96 Room Air 12/08/22 10:24 84 12/08/22 05:54 97.9 F 79 20 167/60 H 96 12/08/22 01:14 98.0 F 12/07/22 22:00 98.0 F 73 16 127/49 L 94 12/07/22 20:00 69 18 98 Room Air Intake/Output Intake/Output: Intake & Output 12/05/22 12/06/22 12/07/22 12/08/22 23:59 23:59 23:59 23:59 Intake Total 1760 2690 1667 Output Total 750 650 550 Balance 1010 2040 1117 Meds/Results Medications: Active Medications Generic Name Dose Route Start Last Admin Trade Name Freq PRN Reason Stop Dose Admin Acetaminophen 650 mg 12/06/22 00:30 12/07/22 08:31 Acetaminophen 325 Mg Tablet PO 650 mg Q6H PRN Administration Mild Pain (1-3) or Fever Amlodipine Besylate 10 mg 12/06/22 09:00 12/08/22 10:25 Amlodipine Besylate 5 Mg Tablet PO 10 mg DAILY ALBA Administration Aspirin 81 mg 12/06/22 08:00 12/08/22 10:24 Aspirin 81 Mg Chewable Tablet PO 81 mg DAILY@0800 ALBA Administration Atorvastatin Calcium 40 mg 12/06/22 09:00 12/08/22 10:25 Atorvastatin 40 Mg Tablet PO 40 mg DAILY ALBA Administration Carvedilol 6.25 mg 12/06/22 09:00 12/08/22 10:24 Carvedilol 6.25 Mg Tablet PO 6.25 mg Q12HR ALBA Administration Cyclobenzaprine HCl 5 mg 12/06/22 11:35 12/08/22 12:09 Cyclobenzaprine Hcl 5 Mg Tablet PO 5 mg Q8H PRN Administration Muscle Spasm Dextrose 12.5 gm 12/06/22 09:27 Dextrose 50% 25 Gm/50 Ml Syringe IV PUSH PRN PRN Hypoglycemia Protocol Diclofenac Sodium 1 applic 12/06/22 00:16 12/06/22 05:53 Diclofenac Sodium 1% 100 Gm Gel (*Bkc) TOPICAL 1 applic Q4-6H PRN Administration Pain Docusate Sodium 100 mg 03/23/23 09:00 12/08/22 10:30 Docusate Sodium 100 Mg Capsule PO 100 mg BID ALBA Administration Dorzolamide HCl 1 drop 12/06/22 09:00 12/08/22 13:18 Dorzolamide Hcl 2% Ophth Drops RIGHT EYE 1 drop TID ALBA Administration Fish Oil 2 gm 12/06/22 09:00 12/08/22 10:24 Trion 3 Polyunsat Fatty Acids 1 Gm Cap PO 2 gm BID ALBA Administration Fluticasone Propionate 2 spray 12/06/22 09:00 12/08/22 10:23 Fluticasone Propionate 0.05% Na Spr 16 Gm Btl (*Bkc) NASAL 2 spray DAILY ALBA Administration Glucagon 1 mg 12/06/22 09: Glucagon For Inj 1 Mg Vial IM PRN PRN Hypoglycemia Protocol Glucose 15 gm 12/06/22 09:27 Glucose Oral Gel 15 Gm Of Glucse In 37.5 Gm Tube PO PRN PRN Hypoglycemia Protocol Heparin Sodium (Porcine) 5,000 units 12/07/22 22:00 12/08/22 13:17 Heparin Sodium 5,000 Units/Ml Vial SUB-Q 5,000 units Q8HR ALBA Administration Dextrose 1,000 mls @ 100 mls/hr 12/06/22 09:27 Dextrose 5% 1,000 Ml IVPB PRN PRN Hypoglycemia Protocol Sodium Chloride 1,000 mls @ 50 mls/hr 12/06/22 11:35 12/08/22 14:05 Normal Saline Iv IV CONT Infused .Q20H ALBA Infusion Insulin Human Regular 1 each 12/07/22 06:00 12/08/22 07:00 Home Medication Insulin XX Not Given DAILY@0600 ALBA Loratadine 10 mg 12/06/22 09:00 12/08/22 10:24 Loratadine 10 Mg Tablet PO 10 mg QAM ALBA Administration Magnesium Oxide 400 mg 12/06/22 09:00 12/08/22 10:26 Magnesium Oxide 400 Mg Tablet PO 400 mg DAILY ALBA Administration Multivitamins/Minerals 1 tab 12/06/22 09:00 12/08/22 10:25 Multivitamins /C Lutein (Centrum Silver) Tablet *Bkc PO 1 tab QAM ALBA Administration Coenzyme Q10 [Co Q- 1 each 12/06/22 09:00 10] 150 Mg Capsule XX 01/05/23 08:59 BID [facility] Ondansetron HCl 4 mg 12/05/22 18:10 Ondansetron Inj 4 Mg/2 Ml Vial IV PUSH Q4H PRN Nausea Oxycodone/Acetaminophen 1 tab 12/06/22 00:16 12/08/22 12:09 Oxycodone/Acetaminophen (*Crx) 10-325 Mg Tablet PO 1 tab BID PRN Administration
[2022-12-08 14:30] LABS: Total Protein Urine Random 297 mg/dL; Ur Ttl Prot Creatinine Ratio 4.91 mg/mg (0-0.20)
[2022-12-08 14:50] LABS: Eosinophil Urine None Seen % (None Seen); Urine Eos QC 2nd Tech Confirmed
[2022-12-14 09:32] LABS: Chloride Rand Ur <20 mmol/L (32-290); Creatinine Random Urine 21 mg/dL (20-320)
== END 2022-12-08 14:45 | disposition home or self-care (01) ==
LOC: ANHED 11:59 → ANH2MED 21:02
PROVIDERS: Internal Medicine Nephrology; Physician Assistant; Admitting Provider Internal Medicine; Emergency Provider General Practice; PCP Family Medicine; Visit Provider Internal Medicine
DX: U07.1 COVID-19 (principal); M16.12 Unilateral primary osteoarthritis, left hip; R26.2 Difficulty in walking, not elsewhere classified; N17.9 Acute kidney failure, unspecified; I12.9 Hypertensive chronic kidney disease with stage 1 through stage 4 chronic kidney disease, or unspecified chronic kidney disease; E10.22 Type 1 diabetes mellitus with diabetic chronic kidney disease; E10.40 Type 1 diabetes mellitus with diabetic neuropathy, unspecified; E10.649 Type 1 diabetes mellitus with hypoglycemia without coma; E10.51 Type 1 diabetes mellitus with diabetic peripheral angiopathy without gangrene; E10.319 Type 1 diabetes mellitus with unspecified diabetic retinopathy without macular edema; N18.9 Chronic kidney disease, unspecified; Z96.41 Presence of insulin pump (external) (internal); R51.9 Headache, unspecified; R79.89 Other specified abnormal findings of blood chemistry; R94.31 Abnormal electrocardiogram [ECG] [EKG]; G31.9 Degenerative disease of nervous system, unspecified; M79.605 Pain in left leg; I70.202 Unspecified atherosclerosis of native arteries of extremities, left leg; I77.1 Stricture of artery; K21.9 Gastro-esophageal reflux disease without esophagitis; E78.5 Hyperlipidemia, unspecified; H54.8 Legal blindness, as defined in USA; M51.36 Other intervertebral disc degeneration, lumbar region; E66.9 Obesity, unspecified; Z68.36 Body mass index [BMI] 36.0-36.9, adult; Z95.4 Presence of other heart-valve replacement; Z79.82 Long term (current) use of aspirin; Z79.52 Long term (current) use of systemic steroids; Z79.4 Long term (current) use of insulin; Z79.891 Long term (current) use of opiate analgesic; Z79.51 Long term (current) use of inhaled steroids; Z79.899 Other long term (current) drug therapy
CPT/HCPCS: 36415; 70450; 71045; 72100; 73502; 73700; 76775; 80048; 80053; 81001; 81050; 82436; 82550; 82570; 82948; 83036; 83735; 84156; 84300; 84540; 85025; 85027; 85055; 85610; 85730; 85999; 87040; 87636; 87637; 93005; 93926; 93971; 96361; 96372; 96374; 96375; 99285; A9270; G0378; J1170; J1644; J2405; J7030

== ENCOUNTER → 2023-03-25 11:10 | Outpatient (CLI) | payer MEDICARE, MEDICAID, SELFPAY ==
--- NOTE | ~2023-03-25 | XR_ITS ---
Right ankle Technique: AP, oblique, and lateral views were obtained. Clinical History: Fibular fracture Findings: No acute fracture or dislocation is seen. Osseous alignment is anatomic. Ankle mortise and other visualized joint spaces are preserved. Plantar calcaneal spur noted. Vascular calcifications ar e present. Impression: No fracture or dislocation. Reviewed, dictated and finalized at location . Impression: No fracture or dislocation.
--- NOTE | ~2023-03-25 | XR_ITS ---
EXAMINATION: XR toe 1st RT min 2V INDICATION: Right first toe pain TECHNIQUE: Three views of the right first toe are obtained. COMPARISON: None available FINDINGS: No fracture is identified. There is advanced osteoarthritis at the first interphalangeal jamia int and moderate osteoarthritis of the remaining the visualized joint spaces. Calcified atheroscleros is is noted. There is soft tissue swelling of the first toe. IMPRESSION: 1. No acute osseous abnormality. Reviewed, dictated and finalized at location B.
== END ==
PROVIDERS: PCP Family Medicine; Visit Provider Podiatrist Foot & Ankle Surgery
DX: M19.071 Primary osteoarthritis, right ankle and foot (principal); M86.8X7 Other osteomyelitis, ankle and foot
CPT/HCPCS: 73610; 73660

== ENCOUNTER 2023-04-30 14:38 | Emergency (ER) | payer MEDICARE, MEDICAID, SELFPAY ==
--- NOTE | 2023-04-30 15:39 | ED.URI ---
HPI - URI/Sore Throat General Chief Complaint: Upper Respiratory Infection Stated Complaint: Sinus Time Seen by Provider: 04/30/23 15:39 Source: patient, RN notes reviewed and old records reviewed Mode of arrival: ambulatory Limitations: no limitations History of Present Illness HPI Narrative: 63-year-old male presents to the [facility] with complaints of sinus congestion and sinus headache for 2 days. Was on amoxicillin 2 weeks ago for dental infection. States that he uses Flonase daily as well as using a Neti pot and taking Zyrtec daily. Has a history of diabetes, multiple sinus infections, high blood pressure, high cholesterol Onset (ago): day(s) (2) Related Data Home Medications Medication Instructions Recorded Confirmed amlodipine 10 mg tablet 10 mg PO DAILY 12/16/20 04/30/23 aspirin 81 mg chewable tablet 81 mg PO DAILY 12/16/20 04/30/23 atorvastatin 40 mg tablet 40 mg PO DAILY 12/16/20 04/30/23 coenzyme Q10 150 mg capsule (Co 150 mg PO BID 12/16/20 04/30/23 Q-10) docusate sodium 100 mg capsule 100 mg PO BID 12/16/20 04/30/23 furosemide 20 mg tablet 40 mg PO QAM 12/16/20 04/30/23 glucagon 1 mg/mL solution for 1 mg subcut Q20M PRN Hypoglycemia 12/16/20 04/30/23 injection (GlucaGen Diagnostic Kit) magnesium oxide 400 mg PO DAILY 12/16/20 04/30/23 prednisolone acetate 1 % eye 1 drp ophthalmic (eye) BID 12/16/20 04/30/23 drops,suspension timolol maleate 0.5 % once daily 1 drp EACH EYE BID 12/16/20 04/30/23 eye drops carvedilol 6.25 mg tablet 6.25 mg PO BID 12/05/22 04/30/23 cetirizine 10 mg tablet 10 mg PO QAM 12/05/22 04/30/23 cyclopentolate 1 % eye drops 1 drp RIGHT EYE ONCE 12/05/22 04/30/23 dapagliflozin propanediol 5 mg 5 mg PO QAM 12/05/22 04/30/23 tablet (Farxiga) diclofenac sodium 1 % topical gel 1 ea topical Q4-6H PRN Pain 12/05/22 04/30/23 dorzolamide 2 % eye drops 1 drp RIGHT EYE TID 12/05/22 04/30/23 fluticasone propionate 50 2 spray intranasal DAILY 12/05/22 04/30/23 mcg/actuation nasal spray,suspension icosapent ethyl 1 gram capsule 2 g PO BID 12/05/22 04/30/23 (Vascepa) insulin lispro 200 unit/mL (3 mL) 200 unit subcut DAILY 12/05/22 04/30/23 subcutaneous pen (Humalog KwikPen U-200 Insulin) Allergies Allergy/AdvReac Type Severity Reaction Status Date / Time No Known Allergies Allergy Verified 12/05/22 11:43 Review of Systems Review of Systems: All systems reviewed & are unremarkable except as noted in HPI and below Constitutional: Constitutional: Reports no additional constitutional complaints Eyes: Eyes: Reports no additional eye complaints ENT: Reports as per HPI, Reports sinus pain and Reports sinus pressure Cardiovascular: Cardiovascular: Reports no additional cardiovascular complaints, Denies chest pain and Denies dyspnea Respiratory: Respiratory: Reports no additional respiratory complaints, Denies chest congestion, Denies cough and Denies dyspnea Gastrointestinal: Gastrointestinal: Reports no additional gastrointestinal complaints, Denies abdominal pain, Denies nausea and Denies vomiting Musculoskeletal: Musculoskeletal: Reports no additional musculoskeletal complaints Integumentary/Breasts: Skin/Breast: Reports system reviewed and no additional complaints, except as docu Neurologic: Reports system reviewed and no additional complaints, except as documented Psychiatric: Psychiatric: Reports no additional psychiatric complaints Allergic/Immunologic: Allergic/Immunologic: Reports no additional allergic/immunologic complaints [facility] Past Medical History Medical History 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
[2023-04-30 15:59] VITALS: BP 164/53; PULSE 68; RESP 16; TEMP 36.3; O2SAT 100
== END 2023-04-30 15:59 | disposition home or self-care (01) ==
PROVIDERS: Emergency Provider Nurse Practitioner; PCP Family Medicine
DX: J01.90 Acute sinusitis, unspecified (principal); E10.319 Type 1 diabetes mellitus with unspecified diabetic retinopathy without macular edema; E10.21 Type 1 diabetes mellitus with diabetic nephropathy; E10.51 Type 1 diabetes mellitus with diabetic peripheral angiopathy without gangrene; E10.40 Type 1 diabetes mellitus with diabetic neuropathy, unspecified; Z79.4 Long term (current) use of insulin; H54.7 Unspecified visual loss; Z79.82 Long term (current) use of aspirin
CPT/HCPCS: 99213; G0463

== ENCOUNTER 2023-09-21 16:06 | Emergency (ER) | payer MEDICARE, MEDICAID, SELFPAY ==
--- NOTE | ~2023-09-21 | XR_ITS ---
Clinical Indication: Pneumonia PA and lateral views of the chest: Comparison: 12/05/2022 Findings: Hazy right middle lobe airspace disease is compatible with pneumonia. Left lung is clear. Cardiomediastinal silhouette is within normal limits. Bones and soft tissues are unremarkable. Impression: Right middle lobe pneumonia. Reviewed, dictated and finalized at [facility]. ULANT DIPPER Impression: Right middle lobe pneumonia.
--- NOTE | 2023-09-21 16:11 | ED.GENADULT ---
HPI - General Adult General Chief complaint: Upper Respiratory Infection Stated complaint: Pneumonia symptoms Time Seen by Provider: 09/21/23 16:21 Source: patient, RN notes reviewed and old records reviewed Mode of arrival: ambulatory Limitations: no limitations History of Present Illness HPI narrative: 63-year-old male presents to the [facility] with concerns for pneumonia. Was diagnosed with pneumonia on the 16 of August at [place], was hospitalized and discharged on the 23 of August. also reports that he was hospitalized last spring for pneumonia. states he has had multiple sinus infections and believes that is what is causing his pneumonia. is concerned also for a sinus infection currently. Denies fevers Patient reports shortness of breath, Tachypneic. States he has used his albuterol and is not making a difference. Patient is unable to walk more than a couple of feet without getting short of breath Symptoms have ranged anywhere from 2-5 days. Related Data Home Medications Medication Instructions Recorded Confirmed amlodipine 10 mg tablet 10 mg PO DAILY 12/16/20 04/30/23 aspirin 81 mg chewable tablet 81 mg PO DAILY 12/16/20 04/30/23 atorvastatin 40 mg tablet 40 mg PO DAILY 12/16/20 04/30/23 coenzyme Q10 150 mg capsule (Co 150 mg PO BID 12/16/20 04/30/23 Q-10) docusate sodium 100 mg capsule 100 mg PO BID 12/16/20 04/30/23 furosemide 20 mg tablet 40 mg PO QAM 12/16/20 04/30/23 glucagon 1 mg/mL solution for 1 mg subcut Q20M PRN Hypoglycemia 12/16/20 04/30/23 injection (GlucaGen Diagnostic Kit) magnesium oxide 400 mg PO DAILY 12/16/20 04/30/23 prednisolone acetate 1 % eye 1 drp ophthalmic (eye) BID 12/16/20 04/30/23 drops,suspension timolol maleate 0.5 % once daily 1 drp EACH EYE BID 12/16/20 04/30/23 eye drops carvedilol 6.25 mg tablet 6.25 mg PO BID 12/05/22 04/30/23 cetirizine 10 mg tablet 10 mg PO QAM 12/05/22 04/30/23 cyclopentolate 1 % eye drops 1 drp RIGHT EYE ONCE 12/05/22 04/30/23 dapagliflozin propanediol 5 mg 5 mg PO QAM 12/05/22 04/30/23 tablet (Farxiga) diclofenac sodium 1 % topical gel 1 ea topical Q4-6H PRN Pain 12/05/22 04/30/23 dorzolamide 2 % eye drops 1 drp RIGHT EYE TID 12/05/22 04/30/23 fluticasone propionate 50 2 spray intranasal DAILY 12/05/22 04/30/23 mcg/actuation nasal spray,suspension icosapent ethyl 1 gram capsule 2 g PO BID 12/05/22 04/30/23 (Vascepa) insulin lispro 200 unit/mL (3 mL) 200 unit subcut DAILY 12/05/22 04/30/23 subcutaneous pen (Humalog KwikPen U-200 Insulin) Allergies Allergy/AdvReac Type Severity Reaction Status Date / Time No Known Allergies Allergy Verified 12/05/22 11:43 Review of Systems Review of Systems: All systems reviewed & are unremarkable except as noted in HPI and below Constitutional: Constitutional: Reports no additional constitutional complaints Eyes: Eyes: Reports no additional eye complaints ENT: Reports as per HPI and Reports sinus pressure Cardiovascular: Cardiovascular: Reports no additional cardiovascular complaints, Denies chest pain and Denies dyspnea Respiratory: Respiratory: Reports as per HPI, Denies chest congestion, Reports cough and Reports dyspnea Gastrointestinal: Gastrointestinal: Reports no additional gastrointestinal complaints, Denies abdominal pain, Denies nausea and Denies vomiting Musculoskeletal: Musculoskeletal: Reports no additional musculoskeletal complaints Integumentary/Breasts: Skin/Breast: Reports system reviewed and no additional complaints, except as docu Neurologic: Reports system reviewed and no additional complaints, except as documented Psychiatric: Psychiatric: Reports no additional psychiatric complaints Allergic/Immunologic: Allergic/Immunologic: Reports no additional allergic/immunologic complaints [facility] Past Medical History Medical History 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
[2023-09-21 16:15] VITALS: BP 148/59; PULSE 66; RESP 16; TEMP 36.4; O2SAT 98
[2023-09-21 16:31] LABS: Glucose Point of Care 120 mg/dl (65-105)
== END 2023-09-21 17:15 | disposition short-term general hospital (02) ==
LOC: EXPGOSH 16:09
PROVIDERS: Emergency Provider Nurse Practitioner; PCP Family Medicine
DX: J18.1 Lobar pneumonia, unspecified organism (principal); I12.9 Hypertensive chronic kidney disease with stage 1 through stage 4 chronic kidney disease, or unspecified chronic kidney disease; E10.22 Type 1 diabetes mellitus with diabetic chronic kidney disease; N18.9 Chronic kidney disease, unspecified; Z79.4 Long term (current) use of insulin; E10.21 Type 1 diabetes mellitus with diabetic nephropathy; E10.319 Type 1 diabetes mellitus with unspecified diabetic retinopathy without macular edema; E10.51 Type 1 diabetes mellitus with diabetic peripheral angiopathy without gangrene
CPT/HCPCS: 71046; 82948; 99213; G0463

== ENCOUNTER → 2023-10-15 12:47 | Outpatient (CLI) | payer MEDICARE, MEDICAID, SELFPAY ==
--- NOTE | ~2023-10-15 | XR_ITS ---
Clinical Indication: Pneumonia PA and lateral views of the chest: Comparison: 09/21/2023 Findings: Small right pleural effusion present. There is consolidation in the right middle lobe. Left lung clear. Cardiomediastinal silhouette is within normal limits. Bones and soft tissues are unrema rkable. Impression: . Small right pleural effusion with right middle lobe pulmonary edema/atelectasis versus pneumonia. C orrelate clinically. Reviewed, dictated and finalized at location [facility]. IFIED ADAPTED PHYSICAL EDUCATOR Impression: . Small right pleural effusion with right middle lobe pulmonary edema/atelectas is versus pneumonia. Correlate clinically.
== END ==
PROVIDERS: PCP Family Medicine; Visit Provider Physician Assistant
DX: R91.8 Other nonspecific abnormal finding of lung field (principal); J90 Pleural effusion, not elsewhere classified; J18.9 Pneumonia, unspecified organism
CPT/HCPCS: 71046